=== PATIENT | female | born 1950 | race Hispanic/Latino ===

== ENCOUNTER 2021-06-23 15:00 | Emergency (ER) | payer OTHER ==
[~2021-06-23] VITALS: Ht 157.5 cm; Wt 83.9 kg
[2021-06-23 17:04] VITALS: BP 139/62
== END 2021-06-23 17:03 | disposition home or self-care (01) ==
LOC: EDH 15:00
DX: S06.0X0A Concussion without loss of consciousness, initial encounter (principal); W20.8XXA Other cause of strike by thrown, projected or falling object, initial encounter; Y93.89 Activity, other specified; Y92.89 Other specified places as the place of occurrence of the external cause; Y99.8 Other external cause status
CPT/HCPCS: 70450